=== PATIENT | male | born 2000 | race Caucasian/White ===

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

== ENCOUNTER 2021-01-16 18:35 | Emergency (ER) | payer BC ==
[2021-01-16] MEDS ORDERED: CEPHALEXIN500 MG PO (19:39)
[2021-01-16] MEDS ORDERED: LODINE CAP 300300 MG PO (19:39)
[2021-01-16] MEDS ORDERED: BACTRIM DS TAB1 EACH PO (19:39)
== END 2021-01-16 20:00 | disposition home or self-care (01) ==
LOC: ER1 18:35
DX: L03.818 Cellulitis of other sites (principal); L05.01 Pilonidal cyst with abscess
CPT/HCPCS: 99283

== ENCOUNTER 2021-03-25 13:06 | Emergency (ER) | payer BC ==
[~2021-03-25 13:06] MED LIST: BACTRIM DS TAB1 EACH PO; CEPHALEXIN500 MG PO; LODINE CAP 300300 MG PO
== END 2021-03-25 15:51 | disposition home or self-care (01) ==
LOC: ER1 13:06
DX: U07.1 COVID-19 (principal)
CPT/HCPCS: 0240U; 99283

== ENCOUNTER → 2021-08-09 | Outpatient (CLI) | payer OTHER | LOC: KOH-I 08:53 | DX: M25.511 Pain in right shoulder (principal) | CPT/HCPCS: 73030 ==

== ENCOUNTER → 2021-08-23 | Outpatient (CLI) | payer OTHER | LOC: KOH-I 08:49 | DX: M25.511 Pain in right shoulder (principal) | CPT/HCPCS: 73221 ==